=== PATIENT | female | born 1995 | race Two or more races ===

== ENCOUNTER 2020-12-04 09:02 | Emergency (ER) | payer MEDICAID, OTHER ==
[~2020-12-04] VITALS: Ht 152.4 cm; Wt 60.8 kg
--- NOTE | 2020-12-04 09:28 | NUR ---
Dr Hugo at the bedside for MSE.
[2020-12-04] MEDS: IBUPROFEN 600 MG TABLET PO ONE (09:45)
[2020-12-04] MEDS ORDERED: IBUPROFEN 600 MG TABLET ONE (09:48)
[2020-12-04] MEDS ORDERED: IBUP-1955 PO (10:43)
--- NOTE | 2020-12-04 10:58 | NUR ---
Patient discharged to home in stable condition. Written and verbal after care instructions given. Patient verbalizes understanding of instructions. Stressed follow up or return to ER for worsening s/s.
[2020-12-04 10:59] VITALS: BP 106/66
== END 2020-12-04 11:01 | disposition home or self-care (01) ==
LOC: ER 09:02
DX: B34.9 Viral infection, unspecified (principal); Z20.822 Contact with and (suspected) exposure to COVID-19
CPT/HCPCS: 86403; 87070; A4663

== ENCOUNTER 2021-08-30 11:35 | Emergency (ER) | payer OTHER ==
[~2021-08-30] VITALS: Ht 165.1 cm; Wt 65.8 kg
[~2021-08-30 11:35] MED LIST: IBUP-1955 PO
--- NOTE | 2021-08-30 12:18 | NUR ---
PT IS IN ROOM #. DR HULL EVALUATED THE PT.
[2021-08-30] MEDS ORDERED: KETOROLAC TROMETHAMINE 15 MG INJ IM ONE (13:45)
[2021-08-30] MEDS ORDERED: KETOROLAC TROMETHAMINE 15 MG INJ ONE (13:49)
[2021-08-30] MEDS ORDERED: CYCL5TAB PO (13:49)
[2021-08-30] MEDS ORDERED: IBUP-1955 PO (13:49)
== END 2021-08-30 14:00 | disposition home or self-care (01) ==
LOC: ER 11:41
DX: S46.911A Strain of unspecified muscle, fascia and tendon at shoulder and upper arm level, right arm, initial encounter (principal); X50.9XXA Other and unspecified overexertion or strenuous movements or postures, initial encounter; Y93.F2 Activity, caregiving, lifting; Y92.89 Other specified places as the place of occurrence of the external cause; Y99.0 Civilian activity done for income or pay
CPT/HCPCS: 96372; 99283; J1885; A4663

== ENCOUNTER 2021-10-02 20:23 | Emergency (ER) | payer OTHER ==
[~2021-10-02] VITALS: Ht 152.4 cm; Wt 60.8 kg
[~2021-10-02 20:23] MED LIST changes: +CYCL5TAB PO
--- NOTE | 2021-10-02 21:10 | NUR ---
pt c/o left side face pain. pt is in room 5a. pt ambulated without assist.
--- NOTE | 2021-10-02 21:20 | NUR ---
Dr. Alan at bedside for MSE.
[2021-10-02] MEDS ORDERED: METOCLOPRAMIDE HCL 10 MG/2 ML VIAL IV ONE (21:30)
[2021-10-02] MEDS ORDERED: diphenhydrAMINE 50 MG/1 ML VIAL IV ONE (21:30)
[2021-10-02] MEDS ORDERED: IV NS 1000 ML 1,000 ML IV ONE (21:30)
[2021-10-02] MEDS ORDERED: KETOROLAC TROMETHAMINE 30 MG INJ IVP ONE (21:30)
[2021-10-02] MEDS ORDERED: KETOROLAC TROMETHAMINE 30 MG INJ ONE (21:34)
[2021-10-02] MEDS ORDERED: diphenhydrAMINE 50 MG/1 ML VIAL ONE (21:34)
[2021-10-02] MEDS ORDERED: METOCLOPRAMIDE HCL 10 MG/2 ML VIAL ONE (21:34)
[2021-10-02 21:47] LABS: HEMATOCRIT 39.9 % (31.2-41.9); MEAN CORPUSCULAR HEMOGLOBIN 30.1 uug (24.7-32.8); MEAN CORPUSCULAR VOLUME 85.7 fL (75.5-95.3); PLATELET COUNT (AUTO) 380 K/uL (179-408)
[2021-10-02 21:54] LABS: CREATININE 0.8 mg/dL (0.6-1.3); POTASSIUM 4.3 mmol/L (3.5-5.1)
[2021-10-02] MEDS ORDERED: DIPH25CA83 PO (22:53)
[2021-10-02] MEDS ORDERED: NAPR-1164 PO (22:53)
[2021-10-02] MEDS ORDERED: METO-295 PO (22:53)
[2021-10-02 22:59] VITALS: BP 135/70
== END 2021-10-02 23:00 | disposition home or self-care (01) ==
LOC: ER 20:23
DX: G43.909 Migraine, unspecified, not intractable, without status migrainosus (principal)
CPT/HCPCS: 36415; 80048; 83735; 85025; 96361; 96374; 96375; 99284; J1200; J1885; J2765; J7040; A4663

== ENCOUNTER 2023-07-23 11:00 | Emergency (ER) | payer OTHER ==
[~2023-07-23] VITALS: Ht 152.4 cm; Wt 63.5 kg
[~2023-07-23 11:00] MED LIST changes: +DIPH25CA83 PO; +METO-295 PO; +NAPR-1164 PO
[2023-07-23] MEDS ORDERED: ACET1TAB23 PO (11:34)
[2023-07-23] MEDS ORDERED: predniSONE 50 MG TABLET ONE (11:38)
[2023-07-23] MEDS: predniSONE 50 MG TABLET PO ONE (11:41)
[2023-07-23 11:42] VITALS: BP 129/70; TEMP 98.3; O2SAT 97
== END 2023-07-23 11:43 | disposition home or self-care (01) ==
LOC: ER 11:03
DX: B34.9 Viral infection, unspecified (principal); Z79.899 Other long term (current) drug therapy
CPT/HCPCS: 99283; J7512; A4606; A4663